=== PATIENT | male | born 1990 | race African-American/Black ===

== ENCOUNTER 2022-08-12 07:11 | Emergency (ER) | payer MEDICAID ==
[~2022-08-12] VITALS: Ht 177.8 cm; Wt 73.0 kg
[2022-08-12 08:36] LABS: BASOPHILS % 0.3 % (0.0-2.0); HEMATOCRIT. 46.3 % (42.0-52.0); HEMOGLOBIN. 15.4 g/dL (14.0-18.0); LYMPHOCYTES % 10.1 % (20.0-50.0); MEAN CORPUSCULAR HEMOGLOBIN 27.1 pg (28.0-32.0); MEAN CORPUSCULAR VOLUME 81.3 fL (80.0-94.0); MEAN PLATELET VOLUME 7.5 fl (7.4-10.4); MONOCYTES % 5.4 % (2.0-8.0); NEUTROPHILS % 84.2 % (40.0-76.0); PLATELET 251 x1000/uL (130-400); RED BLOOD CELL COUNT 5.69 mill/uL (4.7-6.1); RED CELL DISTRIBUTION WIDTH 15.4 % (11.6-14.6)
[2022-08-12 08:45] LABS: CHLORIDE 102 mEq/L (98-107)
[2022-08-12 08:53] LABS: CREATINE KINASE 225 IU/L (39-308); ETHANOL BLOOD < 10 mg/dL
[2022-08-12 10:00] LABS: CLARITY URINE CLEAR (CLEAR); COLOR URINE YELLOW (YELLOW); KETONES URINE 3+ (NEGATIVE); LEUKOCYTE ESTERASE URINE NEGATIVE (NEGATIVE); NITRITE URINE NEGATIVE (NEGATIVE); OCCULT BLOOD URINE NEGATIVE (NEGATIVE); PROTEIN URINE 1+ (NEGATIVE); SPECIFIC GRAVITY URINE 1.025 (1.005-1.030)
[2022-08-12 10:23] LABS: *AMPHETAMINES SCREEN URINE NEGATIVE (NEGATIVE); *BARBITURATES SCREEN URINE NEGATIVE (NEGATIVE); *BENZODIAZEPINES SCREEN URINE NEGATIVE (NEGATIVE); *COCAINE SCREEN URINE NEGATIVE (NEGATIVE); CANNABINOID URINE SCREEN NEGATIVE (NEGATIVE); METHADONE URINE SCREEN NEGATIVE (NEGATIVE); OPIATES URINE SCREEN NEGATIVE (NEGATIVE); PHENCYCLIDINE URINE SCREEN NEGATIVE (NEGATIVE)
[2022-08-12] MEDS: RISPERIDONE 1MG TABLET PO SCH ×2 (14:28→21:00)
[2022-08-13] MEDS: RISPERIDONE 1MG TABLET PO SCH ×2 (08:34→21:24)
[2022-08-14] MEDS: RISPERIDONE 1MG TABLET PO SCH (09:35)
[2022-08-14 14:53] VITALS: BP 136/99
[2022-08-14] MEDS ORDERED: HYDROCHLOROTHIAZIDE 25MG TABLET PO ONE (16:00)
[2022-08-14] MEDS ORDERED: AMLODIPINE 5MG TABLET PO ONE (16:00)
== END 2022-08-14 16:36 ==
LOC: ER 07:11
DX: F29 Unspecified psychosis not due to a substance or known physiological condition (principal); I10 Essential (primary) hypertension; Z20.822 Contact with and (suspected) exposure to COVID-19; Z86.59 Personal history of other mental and behavioral disorders; Z86.39 Personal history of other endocrine, nutritional and metabolic disease
CPT/HCPCS: 36415; 70450; 80053; 80305; 80320; 81003; 82550; 82962; 85025; 99285; C9803; U0003; U0005; G0480